=== PATIENT | male | born 1965 | race African-American/Black ===

== ENCOUNTER 2016-09-08 11:55 | Emergency (ER) | payer SELFPAY ==
[2016-09-08 12:44] LABS: ALT (SGPT) 21 U/L (0-55); AST (SGOT) 26 U/L (5-34); Albumin 4.4 g/dL (3.5-5.0); Alkaline Phosphatase 68 U/L (40-150); Anion Gap 16 mmol/L (10-20); BUN (Urea Nitrogen) 5 mg/dL (8.4-25.7); Bilirubin, Total 0.7 mg/dL (0.2-1.2); Calc. Creatinine Clearance 0 mL/min (70-130); Calcium 9.8 mg/dL (7.8-10.44); Carbon Dioxide 25 mmol/L (22-29); Chloride 102 mmol/L (98-107); Estimated GFR-MDRD 88; Globulin 3.4 g/dL (2.4-3.5); Glucose 88 mg/dL (70-105); Protein, Total 7.8 g/dL (6.0-8.3); Sodium 139 mmol/L (136-145)
[2016-09-08 12:50] LABS: CKMB 1.3 ng/mL (0-6.6); Troponin I Less than 0.010 ng/mL (< 0.028)
[2016-09-08 13:00] LABS: Hemoglobin 21.2 g/dL (14.0-18.0); Lymphocytes 53 % (21-51); MDiff Complete? YES; Macrocytosis SLIGHT = 6-15 cells (100X) (0-5/hpf); Mean Corpuscular HGB CONC 33.4 g/dL (32.0-36.0); Mean Corpuscular Hemoglobin 35.7 pg (27.0-31.0); Monocytes 11 % (0-10); Neutrophil 36 % (42-75); PLT Morphology Comment Appears Adequate; Platelet Count 246 thou/uL (130-400); RBC Distribution Width 13.5 % (11.5-14.5); Red Blood Cell (RBC) Count 5.93 mill/uL (4.70-6.10); White Blood Cell (WBC) Count 6.4 thou/uL (4.8-10.8)
--- NOTE | 2016-09-08 20:13 | RAD ---
PORTABLE CHEST 09/08/16 An AP portable film at 1230 is compared with an 02/04/16 study. The heart is normal in size and the lungs are clear. No infiltrate or effusion was seen. There is no congestive change. The mediastinum was unremarkable. IMPRESSION: Stable exam showing no acute finding. POS: HOME
--- NOTE | 2016-09-08 21:02 | CT ---
PRELIMINARY REPORT/[facility]/EMERGENCY AFTER HOURS PROCEDURE: EXAM: CT Head Without Intravenous Contrast CLINICAL HISTORY: 51 years old, male; Signs and symptoms; Dizziness; Patient HX: Dizziness x two weeks; Lle numbness TECHNIQUE: Axial computed tomography images of the head/brain without intravenous contrast. COMPARISON: No relevant prior studies available. FINDINGS: Brain: There is no acute intracranial hemorrhage or mass effect. The normal leos-white delineation i s preserved. Ventricles: The ventricles are normal in size and configuration for age. Bones/joints: The calvarium is intact. Soft tissues: Unremarkable. Sinuses: The paranasal sinues are normally aerated. Mastoid air cells: Unremarkable as visualized. No mastoid effusion. IMPRESSION: No acute intracranial hemorrhage or edema. Thank you for allowing us to participate in the care of your patient. Dictated and Authenticated by: Sera Segundo MD 09/08/2016 12:40 PM Central Time ([place] \T\ [place]) FINAL REPORT CT OF THE BRAIN WITHOUT CONTRAST 09/08/[address] was done emergently for evaluation of left sided weakness and dizziness. Comparison is made with a prior exam of 02/04/16. There has been no adverse interval change. The ventricles remain normal in size with no shift. No in tracranial bleeding, mass or sign of acute stroke was found. The calvarium appears normal and the vi sible paranasal sinuses are clear. IMPRESSION: Stable exam showing no acute findings. Report in agreement with preliminary reading by [facility]. POS: HOME
== END 2016-09-08 13:57 | disposition home or self-care (01) ==
LOC: BURERS 11:55
DX: F10.10 Alcohol abuse, uncomplicated (principal); R20.9 Unspecified disturbances of skin sensation; I11.0 Hypertensive heart disease with heart failure; I25.2 Old myocardial infarction; I50.9 Heart failure, unspecified; F17.210 Nicotine dependence, cigarettes, uncomplicated
CPT/HCPCS: 36415; 70450; 71010; 80053; 82553; 82668; 84484; 85025; 93005; 96360

== ENCOUNTER 2016-09-20 18:44 | Emergency (ER) | payer SELFPAY ==
[2016-09-20 19:06] LABS: Hemoglobin 21.7 g/dL (14.0-18.0); Mean Corpuscular HGB CONC 34.9 g/dL (32.0-36.0); Mean Corpuscular Hemoglobin 38.4 pg (27.0-31.0); Mean Platelet Volume 7.6 fL (7.4-10.4); Platelet Count 206 thou/uL (130-400); RBC Distribution Width 14.8 % (11.5-14.5); Red Blood Cell (RBC) Count 5.65 mill/uL (4.70-6.10)
[2016-09-20 19:21] LABS: ALT (SGPT) 24 U/L (0-55); AST (SGOT) 35 U/L (5-34); Albumin 4.7 g/dL (3.5-5.0); Alcohol 180 mg/dL (Less than 10); Alkaline Phosphatase 90 U/L (40-150); Anion Gap 23 mmol/L (10-20); BUN (Urea Nitrogen) 6 mg/dL (8.4-25.7); Bilirubin, Total 1.1 mg/dL (0.2-1.2); Calc. Creatinine Clearance 0 mL/min (70-130); Calcium 9.4 mg/dL (7.8-10.44); Carbon Dioxide 19 mmol/L (22-29); Chloride 100 mmol/L (98-107); Estimated GFR-MDRD 81; Globulin 3.3 g/dL (2.4-3.5); Glucose 63 mg/dL (70-105); Potassium 3.4 mmol/L (3.5-5.1); Sodium 139 mmol/L (136-145)
--- NOTE | 2016-09-20 19:24 | CT ---
CT HEAD WITHOUT CONTRAST: Technique: Multiple axial tomograms were obtained through the head without IV enhancement. History: Left lower extremity weakness and left arm weakness. Comparison: 09-08-16 FINDINGS: No evidence of infarct, mass, or hemorrhage. Opacification of left frontal air cell again noted. Par anasal sinuses and mastoids otherwise well aerated. IMPRESSION: Unremarkable head CT. POS: [facility]
[2016-09-20 19:28] LABS: CKMB 2.8 ng/mL (0-6.6); Troponin I Less than 0.010 ng/mL (< 0.028)
--- NOTE | 2016-09-20 19:31 | RAD ---
PORTABLE CHEST: History: Chest pain. FINDINGS: Lungs are clear. Heart and mediastinum appear normal. IMPRESSION: No acute finding. POS: [facility]
[2016-09-20 19:46] LABS: Lymphocytes 18 % (21-51); MDiff Complete? YES; Macrocytosis SLIGHT = 6-15 cells (100X) (0-5/hpf); Monocytes 3 % (0-10); Neutrophil 79 % (42-75); PLT Morphology Comment Appears Adequate
== END 2016-09-20 21:10 | disposition short-term general hospital (02) ==
LOC: BURERS 18:44
DX: R07.2 Precordial pain (principal); E78.5 Hyperlipidemia, unspecified; I11.0 Hypertensive heart disease with heart failure; I50.9 Heart failure, unspecified; I25.2 Old myocardial infarction; F17.210 Nicotine dependence, cigarettes, uncomplicated
CPT/HCPCS: 36416; 70450; 71010; 80053; 80307; 82553; 84484; 85025; 93005

== ENCOUNTER 2017-01-12 09:58 | Emergency (ER) | payer OTHER ==
[2017-01-12] MEDS ORDERED: traMADol HCl 50 MG TAB ONE (10:32)
--- NOTE | 2017-01-12 20:12 | RAD ---
RIGHT RIBS WITH PA CHEST 01/12/17 There is an irregularity of the right 8th rib anterolaterally. Looking back at a 09/20/16 portable fi lm, it is not clear if this is new or not. The findings could be correlated with the exact site of c linical pain. If there is positive correlation, then I would presume it to be fractured. If not, it is probably the residual of an old injury. The ribs otherwise appeared intact. The lungs are clear. No infiltrate or pneumothorax was seen. The mediastinum appears normal. The hea rt is normal in size. IMPRESSION: Equivocal findings near the anterolateral end of the right 8th rib. Correlate with clinical exam. POS: HOME
== END 2017-01-12 10:45 | disposition home or self-care (01) ==
LOC: BURERS 09:58
DX: S22.31XA Fracture of one rib, right side, initial encounter for closed fracture (principal); E78.5 Hyperlipidemia, unspecified; I11.0 Hypertensive heart disease with heart failure; I50.9 Heart failure, unspecified; I25.2 Old myocardial infarction; F17.210 Nicotine dependence, cigarettes, uncomplicated; W11.XXXA Fall on and from ladder, initial encounter

== ENCOUNTER 2017-02-28 06:05 | Emergency (ER) | payer OTHER, SELFPAY ==
[2017-02-28] MEDS ORDERED: Ketorolac Tromethamine 30 MG/ML VIAL ONE (06:14)
[2017-02-28] MEDS ORDERED: Fentanyl 100 MCG/2 ML VIAL ONE (06:14)
[2017-02-28 06:36] LABS: PTT 33.8 SEC (22.9-36.1); Prothrombin Time 13.3 SEC (12.0-14.7)
[2017-02-28] MEDS ORDERED: diphenhydrAMINE HCl 50 MG/ML 1 ML VIAL ONE (06:44)
[2017-02-28] MEDS ORDERED: Prochlorperazine 10 MG/2 ML VIAL ONE (06:44)
[2017-02-28 06:45] LABS: ALT (SGPT) 18 U/L (8-55); AST (SGOT) 26 U/L (5-34); Albumin 4.5 g/dL (3.5-5.0); Alkaline Phosphatase 72 U/L (40-150); Anion Gap 16 mmol/L (10-20); BUN (Urea Nitrogen) 5 mg/dL (8.4-25.7); Bilirubin, Total 0.5 mg/dL (0.2-1.2); Calc. Creatinine Clearance 0 mL/min (70-130); Carbon Dioxide 23 mmol/L (22-29); Chloride 104 mmol/L (98-107); Estimated GFR-MDRD 77; Globulin 3.3 g/dL (2.4-3.5); Glucose 100 mg/dL (70-105); Potassium 3.8 mmol/L (3.5-5.1); Protein, Total 7.8 g/dL (6.0-8.3); Sodium 139 mmol/L (136-145)
[2017-02-28 06:55] LABS: Band 2 % (5-11); Eosinophils 1 % (0-10); Hemoglobin 20.8 g/dL (14.0-18.0); Lymphocytes 52 % (21-51); MDiff Complete? YES; Macrocytosis SLIGHT = 6-15 cells (100X) (0-5/hpf); Mean Corpuscular HGB CONC 33.2 g/dL (32.0-36.0); Mean Corpuscular Hemoglobin 33.6 pg (27.0-31.0); Mean Platelet Volume 8.2 fL (7.4-10.4); Monocytes 11 % (0-10); Neutrophil 34 % (42-75); PLT Morphology Comment Appears Adequate; Platelet Count 235 thou/uL (130-400); RBC Distribution Width 11.7 % (11.5-14.5); Red Blood Cell (RBC) Count 6.19 mill/uL (4.70-6.10)
[2017-02-28 07:11] LABS: Bilirubin Negative (Negative); Blood, Urine Negative (Negative); Clarity Slightly Cloudy (Clear); Glucose, Urine (Dipstick) Negative (Negative); Leukocyte Negative (Negative); Nitrite Negative (Negative); Protein, Urine (Dipstick) Negative (Neg-Trace); Specific Gravity, Urine 1.015 (1.005-1.030); Urobilinogen 0.2 mg/dL (0.2-1.0); pH, Urine 6.5 (5.0-9.0)
[2017-02-28] MEDS ORDERED: Tetracaine HCl 0.5% Ophth Soln 2 ML Bottle ONE (07:24)
[2017-02-28] MEDS ORDERED: Ondansetron HCl/PF 4 MG/2 ML Vial ONE (07:58)
[2017-02-28 10:13] LABS: Color Of CSF Supernatant COLORLESS (Colorless); Tube # 2; Unspun CSF Color COLORLESS (Colorless)
[2017-02-28 10:19] LABS: CSF Source CSF; Clarity Hazy (Clear); RBC Count - Manual 1115 /cumm (None Seen); Tube # 1; WBC/NonHematics Count - Manual 1 /cumm (0-5)
[2017-02-28 10:20] LABS: CSF Source CSF; Tube # 4
[2017-02-28 10:21] LABS: Clarity Clear (Clear); RBC Count - Manual 1 /cumm (None Seen); WBC/NonHematics Count - Manual 1 /cumm (0-5)
[2017-02-28 10:26] LABS: CSF, Glucose 60 mg/dl (40-70); CSF, Protein 52 mg/dL (15-40)
--- NOTE | 2017-02-28 16:06 | CT ---
PRELIMINARY REPORT/[facility]/EMERGENCY AFTER HOURS PROCEDURE: EXAM: CT Head Without Intravenous Contrast CLINICAL HISTORY: 52 years old, male; Pain; Headache; Patient HX: Pt presents to the er for headache; 0230 patient wok e up with "worst headache of his life" states he was stung by a wasp yesterday and he has an al lergy to wasp stings. TECHNIQUE: Axial computed tomography images of the head/brain without intravenous contrast. All CT scans at [facility] facility use one or more dose reduction techniques, viz.: automated exposure control; ma/Kv adjust ment per patient size (including targeted exams where dose is matched to indication; i.e. head); or iterative reconstruction technique. COMPARISON: Head CT report dated 09/08/2016 FINDINGS: Brain: Mild volume loss No hemorrhage. No significant white matter disease. No edema. Ventricles: Unremarkable. No ventriculomegaly. Bones/joints: Unremarkable. No acute fracture. Soft tissues: Unremarkable. Sinuses: Unremarkable as visualized. No acute sinusitis. Mastoid air cells: Unremarkable as visualized. No mastoid effusion. IMPRESSION: No intracranial hemorrhage.Please see discussion above. Thank you for allowing us to participate in the care of your patient. Dictated and Authenticated by: Delano Abdalla MD 02/28/2017 6:57 AM Central Time ([place] \\T\\ [place]) FINAL REPORT CT OF THE BRAIN WITHOUT CONTRAST: DATE: 02/28/17. COMPARISON: Comparison is made with the 09/08/16 CT. No intracranial bleeding or subarachnoid hemorrhage was seen . The ventricles are normal in size and show no shift. Old lacunar infarcts are suggested in the patient's brainstem, particularly in the pontine region. The largest area is on the right side near the right middle cerebellar peduncle. There are no findi ngs of acute stroke in the cerebrum. There is an equivocal area of low-density in the right cerebel lar hemisphere that I do not appreciate on a 09/08/16 CT. One would need to do an MRI to assess wheth er this could be an acute stroke or not. No mass is seen in the brain. The skull appears normal. The mastoid air cells and sphenoid sinus are clear. IMPRESSION: 1. No evidence of intracranial bleeding or subarachnoid hemorrhage to explain the patient's headach e. 2. Evidence of prior lacunar infarcts of the brainstem, predominantly in the tayo. 3. Equivocal low-density area in the right cerebellar hemisphere. Correlate with clinical symptoms and consider MRI for a definitive study if the possibility of a stroke here exists. Report only in partial agreement with [facility] reading. No mention of cerebellar finding. Dr. Hartman called in the ER at 0826 on 02/28/17 for followup and discussion. POS: HOME
== END 2017-02-28 10:46 | disposition home or self-care (01) ==
LOC: BURERS 06:05
DX: I11.0 Hypertensive heart disease with heart failure (principal); I50.9 Heart failure, unspecified; E78.5 Hyperlipidemia, unspecified; I25.2 Old myocardial infarction; I25.110 Atherosclerotic heart disease of native coronary artery with unstable angina pectoris; F17.210 Nicotine dependence, cigarettes, uncomplicated; Z86.73 Personal history of transient ischemic attack (TIA), and cerebral infarction without residual deficits
CPT/HCPCS: 62270; 70450; 80053; 81003; 82945; 84157; 85025; 85610; 85730; 87070; 87205; 89051; 96361; 96374; 96375; J0360; J0780; J1200; J1885; J2405; J3010